=== PATIENT | female | born 1975 | race Caucasian/White ===

== ENCOUNTER 2017-05-02 16:38 | Emergency (ER) | payer BC ==
--- NOTE | 2017-05-02 17:04 | UC ---
Throat Pain/Nasal Serjio HPI - HPI Summary HPI Summary: Pt presents with 3 days of cough and sinus symptoms. She tells me that 3 days ago she developed sinus pain/pressure/congestion and a dry cough. The cough has been "very annoying" and she has a constant tickle in the back of her throat. She has been taking sudafed for this with little to no relief. She denies fever , chills, SOB, chest pain, abdominal pain, n/v/d/c, or body aches - History of Current Complaint Hx Obtained From: Patient Hx Last Menstrual Period: 05/02/17 Onset/Duration: Gradual Onset <Tremayne Zacarias - Last Filed: 05/02/17 17:31> <Leslie Shannon - Last Filed: 05/02/17 17:37> - History of Current Complaint Chief Complaint: UCGeneralIllness Stated Complaint: COLD,COUGH,SINUS CONGESTION - Allergies/Home Medications Allergies/Adverse Reactions: Allergies Allergy/AdvReac Type Severity Reaction Status Date / Time No Known Allergies Allergy Verified 05/02/17 16:51 Home Medications: Home Medications Pseudoephedrine TAB* [Sudafed TAB*] 30 mg PO ONCE PRN 05/02/17 [History Confirmed 05/02/17] PMH/Surg Hx/FS Hx/Imm Hx - Surgical History Surgical History: None - Social History Occupation: Employed Full-time Lives: With Family Alcohol Use: None Substance Use Type: None Smoking Status (MU): Never Smoked Tobacco - Immunization History Most Recent Influenza Vaccination: 2016 <Tremayne Zacarias - Last Filed: 05/02/17 17:31> Review of Systems Constitutional: Negative Skin: Negative Eyes: Negative ENT: Nasal Discharge, Sinus Congestion, Sinus Pain/Tenderness Respiratory: Cough Cardiovascular: Negative Gastrointestinal: Negative All Other Systems Reviewed And Are Negative: Yes <Tremayne Zacarias - Last Filed: 05/02/17 17:31> Physical Exam Triage Information Reviewed: Yes Appearance: Well-Appearing, No Pain Distress, Obese Vital Signs: Initial Vital Signs Temp 98.8 F 05/02/17 16:52 Pulse 94 05/02/17 16:52 Resp 16 05/02/17 16:52 Pulse Ox 100 05/02/17 16:52 Vital Signs Reviewed: Yes Eyes: Positive: Conjunctiva Clear. Negative: Conjunctiva Inflamed, Discharge ENT: Positive: Hearing grossly normal, Pharynx normal, Nasal congestion, Nasal drainage, TMs normal, Sinus tenderness, Uvula midline. Negative: Pharyngeal erythema, TM bulging, TM dull, TM red, Tonsillar swelling, Tonsillar exudate, Hoarse voice Neck: Positive: Supple, Nontender, No Lymphadenopathy Respiratory: Positive: Chest non-tender, Lungs clear, Normal breath sounds, No respiratory distress, No accessory muscle use Cardiovascular: Positive: RRR, No Murmur, Pulses Normal Neurological: Positive: Alert Psychological: Positive: Age Appropriate Behavior Skin: Negative: rashes <Tremayne Zacarias - Last Filed: 05/02/17 17:31> Vital Signs: Initial Vital Signs Temp 98.8 F 05/02/17 16:52 Pulse 94 05/02/17 16:52 Resp 16 05/02/17 16:52 Pulse Ox 100 05/02/17 16:52 <Leslie Shannon - Last Filed: 05/02/17 17:37> Throat Pain/Nasal Course/Dx - Course Course Of Treatment: Sinusitis. Bronchitis - Differential Dx/Diagnosis Provider Diagnoses: Sinusitis. Bronchitis <Tremayne Zacarias - Last Filed: 05/02/17 17:31> Discharge <Tremayne Zacarias - Last Filed: 05/02/17 17:31> <Leslie Shannon - Last Filed: 05/02/17 17:37> - Discharge Plan Condition: Stable Disposition: HOME Prescriptions: Albuterol HFA INHALER* [Ventolin HFA Inhaler*] 1 - 2 puff INH Q6H PRN #1 mdi PRN Reason: Sob/Wheezing Benzonatate CAP* [Tessalon 100 MG CAP*] 100 mg PO TID PRN #21 cap PRN Reason: Cough Guaifenesin-Codeine [Guaiatussin AC 100-10 mg/5Ml] 5 ml PO BEDTIME PRN #25 ml MDD 5mL PRN Reason: Cough Patient Education Materials: Acute Bronchitis (ED) Referrals: No Primary Care Phys,NOPCP [Primary Care Provider] - Additional Instructions: If you develop a fever, shortness of breath, chest pain, new or worsening symptoms - please call your PCP or go to the ED. Your blood pressure was high at todays visit. Please see your primary provider within 4 weeks for recheck and re-evaluation. Attestation Statement User Type: Provider - I was available for consult. This patient was seen by the ZANDRA. The patient was not presented to, seen by, or examined by me. -Kameron <Leslie Shannon - Last Filed: 05/02/17 17:37>
[2017-05-02 17:29] VITALS: BP 140/90
== END 2017-05-02 17:42 | disposition home or self-care (01) ==
LOC: UCEAST 16:38
DX: J32.9 Chronic sinusitis, unspecified (principal); J40 Bronchitis, not specified as acute or chronic; E66.9 Obesity, unspecified
CPT/HCPCS: 99202; G0463

== ENCOUNTER 2017-11-10 07:19 | Emergency (ER) | payer BC ==
[2017-11-10 07:37] VITALS: BP 160/84
--- NOTE | 2017-11-10 07:47 | UC ---
Throat Pain/Nasal Serjio HPI - HPI Summary HPI Summary: Onset yesterday of sore throat, pain with swallowing, ear pain, dry cough and sinus congestion. No fever, nausea/vomiting. - History of Current Complaint Chief Complaint: UCRespiratory Stated Complaint: SORE THROAT, AND EAR ACHE Time Seen by Provider: 11/10/17 07:24 Hx Obtained From: Patient Hx Last Menstrual Period: 10/31/17 Onset/Duration: Gradual Onset, Lasting Days - 1 DAY, Still Present Severity: Moderate Pain Intensity: 7 Pain Scale Used: 0-10 Numeric Cough: Nonproductive - We issue it sounds croupy Associated Signs & Symptoms: Positive: Hoarseness, Sinus Discomfort, Nasal Discharge - Allergies/Home Medications Allergies/Adverse Reactions: Allergies Allergy/AdvReac Type Severity Reaction Status Date / Time bee venom protein (honey bee) Allergy Blisters Verified 11/10/17 07:30 Home Medications: Home Medications Ibuprofen 400 mg PO ONCE 11/10/17 [History Confirmed 11/10/17] PMH/Surg Hx/FS Hx/Imm Hx Previously Healthy: Yes - Surgical History Surgical History: None - Family History Known Family History: Negative: Hypertension - Social History Alcohol Use: None Substance Use Type: None Smoking Status (MU): Never Smoked Tobacco - Immunization History Most Recent Influenza Vaccination: 2017 Review of Systems Constitutional: Negative - the length ENT: Sore Throat, Ear Ache, Nasal Discharge Respiratory: Cough - Roxana good Cardiovascular: Palpitations Gastrointestinal: Negative - Os was not off the flap All Other Systems Reviewed And Are Negative: Yes Physical Exam Triage Information Reviewed: Yes Appearance: Well-Appearing, No Pain Distress - lITTLE DO, Well-Nourished Vital Signs: Initial Vital Signs Temp 97.8 F 11/10/17 07:25 Pulse 88 11/10/17 07:25 Resp 18 11/10/17 07:25 BP 160/84 11/10/17 07:25 Pulse Ox 100 11/10/17 07:25 Vital Signs Reviewed: Yes Eyes: Positive: Conjunctiva Clear - pHYSICAL NEEDED TETANUS SHOT ENT: Positive: Hearing grossly normal, Pharyngeal erythema, TMs normal. Negative: Tonsillar swelling, Tonsillar exudate Neck: Positive: Supple, Nontender, No Lymphadenopathy Respiratory Exam: Normal Cardiovascular Exam: Normal Abdomen Description: Positive: Soft Musculoskeletal: Positive: No Edema Neurological: Positive: Alert Psychological: Positive: Age Appropriate Behavior Skin: Negative: rashes Diagnostics - Laboratory Diagnostic Studies Completed/Ordered: strep neg Throat Pain/Nasal Course/Dx - Differential Dx/Diagnosis Provider Diagnoses: CROUP/VIRAL ILLNESS Discharge - Sign-Out/Discharge Documenting (check all that apply): Patient Departure - Discharge Plan Condition: Stable Disposition: HOME Prescriptions: Codeine Phosphate/Guaifenesin [Codeine-Guaifen 10-100 mg/5 ml] 5 - 10 ml PO Q6H PRN #150 ml MDD 40ML PRN Reason: Cough Magic Mouth Was-MOHAN/MAAL/LIDO* 5 - 10 ml SWISH SWAL QID PRN #150 ml PRN Reason: Sore Throat predniSONE TAB* [Deltasone TAB*] 50 mg PO DAILY #5 tab Patient Education Materials: Viral Syndrome (ED), Croup in Adults (ED) Referrals: No Primary Care Phys,NOPCP [Primary Care Provider] - Additional Instructions: YOUR SYMPTOMS ARE LIKELY VIRALLY MEDIATED AND SHOULD RESOLVE ON THEIR OWN WITH TIME. NO INDICATION FOR ANTIBIOTICS AT PRESENT. REST, HYDRATE, OTC MEDS NEEDED. WILL TREAT WITH PREDNISONE TO HELP WITH AIRWAY INFLAMMATION AND COUGH MEDICINE. SEEK FOLLOW-UP IF YOU ARE NOT IMPROVING OVER THE NEXT 1-2 WEEKS. YOUR BLOOD PRESSURE WAS ELEVATED TODAY (160/84). THIS MAY BE DUE TO YOUR ACUTE CONDITION. MONITOR AND FOLLOW-UP WITH YOUR PCP WITHIN 4 WEEKS IF IT HAS NOT RETURNED TO NORMAL. - Billing Disposition and Condition Condition: STABLE Disposition: Home
== END 2017-11-10 08:36 | disposition home or self-care (01) ==
LOC: UCEAST 07:19
DX: J02.9 Acute pharyngitis, unspecified (principal); R13.10 Dysphagia, unspecified; H92.09 Otalgia, unspecified ear; R05 Cough; J34.89 Other specified disorders of nose and nasal sinuses; Z91.030 Bee allergy status
CPT/HCPCS: 87651; 99212; G0463